=== PATIENT | female | born 1955 | race Caucasian/White ===

== ENCOUNTER → 2016-06-06 | Outpatient (CLI) | payer BC ==
[~2016-06-06] MED LIST: ALEVE220 MG PO; CALCIUM WITH D1 CTB PO; CLARITIN 1010 MG/TAB PO; ENDOMETRIN100 MG; ESTRACE0.1 MG/GM; FLONASEALLERGY NS; LISINOPRIL20 MG PO; MOTRIN 400400 MG/TAB PO; PREDNISONE10 MG PO; TYLENOL EXTRA500 M1 PO; VESICARE10 MG PO; [UNRECOGNIZED DRUG - CODE]
== END ==
LOC: MC.RAD 07:00
DX: Z12.31 Encounter for screening mammogram for malignant neoplasm of breast (principal)

== ENCOUNTER → 2017-06-08 | Outpatient (CLI) | payer BC | LOC: MC.RAD 06:55 | DX: Z12.31 Encounter for screening mammogram for malignant neoplasm of breast (principal) ==

== ENCOUNTER → 2018-07-01 | Outpatient (CLI) | payer BC | LOC: MC.RAD 06:51 | DX: Z12.31 Encounter for screening mammogram for malignant neoplasm of breast (principal) ==

== ENCOUNTER → 2019-09-09 | Outpatient (CLI) | payer BC | LOC: MC.RAD 07-11 07:00 | DX: Z12.31 Encounter for screening mammogram for malignant neoplasm of breast (principal) ==

== ENCOUNTER 2020-08-24 06:48 | Observation (INO) | payer BC ==
[~2020-08-24] VITALS: Ht 165.1 cm; Wt 137.0 kg
[2020-08-24 07:40] LABS: ALBUMIN 3.7 gm/dL (3.5-5.0); BILIRUBIN,TOTAL 0.5 mg/dL (0.0-1.0); C-REACTIVE PROTEIN 2.6 mg/dL (0.0-0.9); CALCIUM 8.7 mg/dL (8.4-10.2); CREATININE, serum 0.62 (0.52-1.25); POTASSIUM 4.4 mmol/L (3.4-5.0); TOTAL PROTEIN 6.6 gm/dL (6.4-8.2)
[2020-08-24 08:34] LABS: COLLECTION METHOD CLEAN CATCH
[2020-08-24 08:46] LABS: PH 6 (5-8); SQUAMOUS EPITHELIAL 0-2 /hpf; URINE APPEARANCE Clear; URINE BACTERIA None Seen /hpf; URINE BILIRUBIN Negative (NEGATIVE); URINE BLOOD Negative (NEGATIVE); URINE COLOR Straw; URINE GLUCOSE Negative (NEGATIVE); URINE KETONE Negative (NEGATIVE); URINE LEUKOCYTE ESTERASE Negative (NEGATIVE); URINE NITRATE Negative (NEGATIVE); URINE PROTEIN(semi-quant) Negative (NEGATIVE); URINE RBC 0-2 /hpf; URINE UROBILINOGEN Negative (NEGATIVE)
[2020-08-24 09:10] LABS: BASO % 0.2 % (0.0-2.0); EOS # 0.1 (0.0-0.7); EOS % 0.4 % (0-4.0); GRAN # 10.2 (1.4-6.5); GRAN % 78.4 % (42.2-75.2); HEMATOCRIT 41.3 % (37.0-47.0); HEMOGLOBIN 13.8 g/dl (12.5-16.0); LYMPH # 1.8 (1.2-3.4); LYMPH % 13.4 % (20.0-51.0); MEAN CELL VOLUME 83 fl (80.0-100.0); MEAN CORPUSCULAR HEMOGLOBIN 28 pg (27.0-31.0); MEAN CORPUSCULAR HGB CONC 33 g/dl (33.0-37.0); MEAN PLATELET VOLUME 10.6 fl (7.4-10.4); MONO % 7.3 % (1.7-9.3); PLATELET COUNT 268 K/mm3 (130-400); RED BLOOD COUNT 4.97 M/mm3 (4.10-5.30); REDCELL DISTRIBUTION WIDTH-CV 13.4 % (11.5-14.5)
[2020-08-24] MEDS ORDERED: LOPRESSOR 225 MG/TAB PO (09:45)
[2020-08-24] MEDS ORDERED: CRESTOR 10MG10 MG PO (09:46)
[2020-08-24] MEDS ORDERED: ASPIRIN 81M81 MG/TA2 PO (09:48)
[2020-08-24] MEDS ORDERED: VITAMIND3 5000 PO (09:49)
[2020-08-24] MEDS ORDERED: DULCOLAX STOOL100 MG PO (09:50)
[2020-08-24] MEDS ORDERED: OSTEO-BI-FLEX 21 TAB PO (09:51)
[2020-08-24] MEDS ORDERED: PRINIVIL20 MG PO (09:52)
[2020-08-24 10:19] VITALS: BP 123/58; PULSE 67; TEMP 98.9
--- NOTE | 2020-08-24 11:00 | NUR ---
Patient admitted to room 322 from ER. Report obtained from Teressa. Ivf started to Rac. Ice water provided, she denies nausea. She does have a headache. TYelnol per request. Her spouse at bedside. Will monitor.
[2020-08-24 12:01] VITALS: BP 135/50; PULSE 68; TEMP 98.4
--- NOTE | 2020-08-24 14:17 | NUR ---
Patient denies needs at this time. She reports the clear liquids did not settle well. She is not wanting nausea medications. Tyelnol relieved her headache. Will monitor.
--- NOTE | 2020-08-24 14:34 | NUR ---
ROBIN met with the patient, her (Marvel, ph#[phone]), and friend to discuss discharge plan. The patient lives in [place] with her . She reports independence with ADLs and does not have any DME. The patient's PCP is Dr. Erica Bennett and she receives her medications at [facility]. She reports no difficulties obtaining her meds. The patient does not have a DPOA-HC and she was not interested in completing one at this time. The patient plans to return home with her upon discharge. No additional needs at this time. *Discharge plan: home with *
[2020-08-24 15:37] VITALS: BP 150/68; PULSE 75; TEMP 99.8
--- NOTE | 2020-08-24 19:55 | NUR ---
Patient resting in bed. Tolerated jello & water for dinner. Vss, low grade temp continues. Motrin & tylenol manage pain. SHe si voiding without difficulty. Bedside report to Jose carbone nurse
--- NOTE | 2020-08-24 20:00 | NUR ---
Pt. sitting up in bed. Pt. his A&OX3, assessment complete. IV to rt. ac patent, IV fluids infusing per orders. Pt. reports pain at a 7 on pain scale, giving pain meds per orders. Pt. denies further needs.
[2020-08-24 21:09] VITALS: BP 117/54; PULSE 75; TEMP 99.2
[2020-08-25 00:03] VITALS: BP 107/50; PULSE 70; TEMP 98.4
[2020-08-25 04:37] VITALS: BP 109/49; PULSE 63; TEMP 98.1
[2020-08-25 06:34] LABS: BASO % 0.2 % (0.0-2.0); EOS # 0.1 (0.0-0.7); EOS % 0.6 % (0-4.0); GRAN # 7.9 (1.4-6.5); GRAN % 69.6 % (42.2-75.2); HEMATOCRIT 38.1 % (37.0-47.0); LYMPH # 2.2 (1.2-3.4); LYMPH % 18.9 % (20.0-51.0); MEAN CELL VOLUME 86 fl (80.0-100.0); MEAN CORPUSCULAR HEMOGLOBIN 27 pg (27.0-31.0); MEAN CORPUSCULAR HGB CONC 32 g/dl (33.0-37.0); MEAN PLATELET VOLUME 9.9 fl (7.4-10.4); MONO # 1.2 (0.1-0.6); MONO % 10.3 % (1.7-9.3); PLATELET COUNT 236 K/mm3 (130-400); RED BLOOD COUNT 4.43 M/mm3 (4.10-5.30); REDCELL DISTRIBUTION WIDTH-CV 13.5 % (11.5-14.5)
[2020-08-25 06:45] LABS: CALCIUM 8.5 mg/dL (8.4-10.2); CREATININE, serum 0.88 (0.52-1.25); POTASSIUM 4.4 mmol/L (3.4-5.0)
--- NOTE | 2020-08-25 08:00 | NUR ---
Patient sitting up on edge of bed. Alert and oriented x 3. Assessment complete. Denies pain at this time. Fluids infusing per orders. Denies further needs at this time.
[2020-08-25 08:59] VITALS: BP 101/45; PULSE 68; TEMP 98.1
[2020-08-25 12:29] VITALS: BP 119/66; PULSE 79; TEMP 98.6
[2020-08-25 15:54] VITALS: BP 118/51; PULSE 82; TEMP 98.7
--- NOTE | 2020-08-25 18:19 | NUR ---
Patient has done well throughout the day, independent in the room. Family at bedside thoughout the day. Denies pain throughout the day. Denies further needs at this time. Will report off to piano mechanic apprentice.
[2020-08-25 19:46] VITALS: BP 132/55; PULSE 79; TEMP 98.1
--- NOTE | 2020-08-25 20:45 | NUR ---
Pt. sitting up in bed at this time. Pt. is A&OX3, assessment complete. INT to rt. ac patent. Pt. reports mild body aches this evening, gave motrin per orders. Pt. denies further needs, call light within reach.
[2020-08-26 00:26] VITALS: BP 109/56; PULSE 67; TEMP 98.5
[2020-08-26 04:32] VITALS: BP 133/64; PULSE 60; TEMP 97.8
[2020-08-26 06:42] LABS: HEMATOCRIT 37.2 % (37.0-47.0); HEMOGLOBIN 11.9 g/dl (12.5-16.0); MEAN CELL VOLUME 85 fl (80.0-100.0); MEAN CORPUSCULAR HEMOGLOBIN 27 pg (27.0-31.0); MEAN CORPUSCULAR HGB CONC 32 g/dl (33.0-37.0); MEAN PLATELET VOLUME 10.4 fl (7.4-10.4); PLATELET COUNT 238 K/mm3 (130-400); RED BLOOD COUNT 4.37 M/mm3 (4.10-5.30); REDCELL DISTRIBUTION WIDTH-CV 13.3 % (11.5-14.5)
[2020-08-26 07:30] VITALS: BP 147/73; PULSE 66; TEMP 97.6
--- NOTE | 2020-08-26 07:40 | NUR ---
Patient sitting up in chair. Awake & alert. Pain rating 2/10. She reports pain much improved. Just intermittent pain, but able to move easier. Breakfast ordered. Denies nausea. Vss. Morning meds given. Hopeful for discharge. Will monitor.
[2020-08-26] MEDS ORDERED: AMOXICILLIN 8751 TAB PO (09:24)
--- NOTE | 2020-08-26 10:58 | NUR ---
rounded. Discharge orders obtained. Patient showered. Tolerated breakfast. Denies nausea. Denies the need for pain medication. Int DC. 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 Home med list reviewed. She is aware she will need to make follow up appt thursday for surgery. denies questions or concerns. Patient ambulated out with all belongings, her spouse taking her home.
== END 2020-08-26 11:01 | disposition home or self-care (01) ==
LOC: COL.ER 06:48 → SURG 09:05
PROVIDERS: Family Medicine; ADMIT Surgery
DX: K35.80 Unspecified acute appendicitis (principal); I10 Essential (primary) hypertension; E78.5 Hyperlipidemia, unspecified; E66.9 Obesity, unspecified; Z79.899 Other long term (current) drug therapy; Z79.82 Long term (current) use of aspirin
CPT/HCPCS: G0378; J2270; J2405; J2543; J7120; Q9967

== ENCOUNTER → 2020-09-14 | Outpatient (CLI) | payer BC ==
[~2020-09-14] MED LIST changes: +AMOXICILLIN 8751 TAB PO; +ASPIRIN 81M81 MG/TA2 PO; +CRESTOR 10MG10 MG PO; +DULCOLAX STOOL100 MG PO; +LOPRESSOR 225 MG/TAB PO; +OSTEO-BI-FLEX 21 TAB PO; +PREMARIN VAG42.5 GM VG; +PRINIVIL20 MG PO; +STOOL SOFTENER100 M2 PO; +ULTRAM 50MG TAB50 MG PO; +VITAMIND3 5000 PO
== END ==
LOC: MC.RAD 06:59
DX: Z12.31 Encounter for screening mammogram for malignant neoplasm of breast (principal)

== ENCOUNTER 2020-09-27 05:20 | Day surgery (SDC) | payer BC ==
[~2020-09-27] VITALS: Ht 165.1 cm; Wt 138.8 kg
[~2020-09-27 05:20] MED LIST changes: -PREMARIN VAG42.5 GM VG; -STOOL SOFTENER100 M2 PO; -ULTRAM 50MG TAB50 MG PO
[2020-09-27 05:59] LABS: BASO % 0.3 % (0.0-2.0); EOS # 0.2 (0.0-0.7); EOS % 2.1 % (0-4.0); GRAN # 3.5 (1.4-6.5); GRAN % 48.3 % (42.2-75.2); HEMOGLOBIN 12.7 g/dl (12.5-16.0); LYMPH # 2.7 (1.2-3.4); LYMPH % 37.2 % (20.0-51.0); MEAN CELL VOLUME 84 fl (80.0-100.0); MEAN CORPUSCULAR HEMOGLOBIN 27 pg (27.0-31.0); MEAN CORPUSCULAR HGB CONC 33 g/dl (33.0-37.0); MEAN PLATELET VOLUME 9.5 fl (7.4-10.4); MONO # 0.9 (0.1-0.6); MONO % 11.8 % (1.7-9.3); PLATELET COUNT 249 K/mm3 (130-400); RED BLOOD COUNT 4.65 M/mm3 (4.10-5.30); REDCELL DISTRIBUTION WIDTH-CV 13.4 % (11.5-14.5)
[2020-09-27 06:03] VITALS: BP 156/67; PULSE 68; TEMP 97.8
[2020-09-27 06:13] LABS: CALCIUM 8.7 mg/dL (8.4-10.2); CREATININE, serum 0.67 (0.52-1.25); POTASSIUM 4.1 mmol/L (3.4-5.0)
[2020-09-27] MEDS ORDERED: CRESTOR 10MG10 MG PO (06:16)
[2020-09-27] MEDS ORDERED: CLARITIN 1010 MG/TAB PO (06:18)
[2020-09-27] MEDS ORDERED: STOOL SOFTENER100 M2 PO (06:18)
[2020-09-27] MEDS ORDERED: PREMARIN VAG42.5 GM VG (06:22)
--- NOTE | 2020-09-27 06:30 | NUR ---
TO RM AT 0534- CALL LIGHT IN REACH AT BEDSIDE.
[2020-09-27] MEDS ORDERED: ULTRAM 50MG TAB50 MG PO (09:23)
[2020-09-27 09:45] VITALS: BP 110/58; PULSE 77
--- NOTE | 2020-09-27 09:45 | NUR ---
TO RM 8 PER CART FROM PACU. ALERT ORIENTED X3, TALKING TO STAFF AND . C/O PAIN 4-5 AT CURRENT TIME. RECEIVED WATER AND CRACKERS.
[2020-09-27 10:00] VITALS: BP 131/64; PULSE 72; TEMP 97.3
--- NOTE | 2020-09-27 10:00 | NUR ---
SKIN ADHESIVE OVER INCISION SITES CLEAN DRY INTACT. DRINKING WATER AND ATE 1 CRACKER PATIENT C/O PAIN CONTINUES TO BE 5/10. RECEIVED ULTRAM 50MG PO PER ORDER.
[2020-09-27 10:20] VITALS: BP 145/68; PULSE 69
[2020-09-27 10:30] VITALS: BP 135/66; PULSE 16
--- NOTE | 2020-09-27 10:30 | NUR ---
CONTINUES TO REST QUIETLY.
--- NOTE | 2020-09-27 10:30 | NUR ---
AMBULATED TO BATHROOM WITH 2 STAND BY ASSIST. VOIDED AND AMBULATED TO BED.
--- NOTE | 2020-09-27 10:45 | NUR ---
RECEIVED DISCHARGE INSTRUCTIONS AND VERBALIZED UNDERSTANDING.
--- NOTE | 2020-09-27 11:00 | NUR ---
DISCHARGED PER WC BY NURSING STAFF TO PRIVATE CAR IN CARE OF HENRI.
== END 2020-09-27 11:24 | disposition home or self-care (01) ==
LOC: SDCO 05:20
PROVIDERS: Surgery
DX: K35.33 Acute appendicitis with perforation, localized peritonitis, and gangrene, with abscess (principal); K66.0 Peritoneal adhesions (postprocedural) (postinfection); Z79.82 Long term (current) use of aspirin; Z79.899 Other long term (current) drug therapy; E66.01 Morbid (severe) obesity due to excess calories; I10 Essential (primary) hypertension; E78.5 Hyperlipidemia, unspecified; G47.33 Obstructive sleep apnea (adult) (pediatric)
CPT/HCPCS: J0330; J0690; J1100; J2405; J2704; J7120

== ENCOUNTER → 2021-09-16 | Outpatient (CLI) | payer BC ==
[~2021-09-16] MED LIST changes: +PREMARIN VAG42.5 GM VG; +STOOL SOFTENER100 M2 PO; +ULTRAM 50MG TAB50 MG PO
== END ==
LOC: MC.RAD 07:23
DX: Z12.31 Encounter for screening mammogram for malignant neoplasm of breast (principal)